=== PATIENT | male | born 1985 | race African-American/Black ===

== ENCOUNTER 2017-05-22 23:16 | Inpatient (IN) | payer OTHER ==
[~2017-05-22] VITALS: Ht 176.5 cm; Wt 81.0 kg
[~2017-05-22 23:16] MED LIST: AMOX875 PO; SULF1TAB47 PO
[2017-05-23] VITALS (7 sets, daily range): BP systolic 93–122; BP diastolic 56–72; PULSE 55–89; RESP 16–18; TEMP 96.8–100; O2SAT 95–99
[2017-05-23] MEDS ORDERED: ACETAMINOPHEN/HYDROcodone 325 MG/5 MG TAB PO PRN (01:45)
[2017-05-23] MEDS ORDERED: MORPHINE SULFATE 2 MG/ML INJ IV PRN (01:45)
[2017-05-23] MEDS ORDERED: SODIUM CHLORID 0.9% 500 ML IV PRN (02:15)
[2017-05-23] MEDS ORDERED: POVIDONE IODINE 5% (ANTISEPSIS KIT) 4 APPLICATIONS EACH NARE PRN (02:15)
[2017-05-23] MEDS ORDERED: LACTATED RINGER'S 1000 ML IV PRN (02:15)
[2017-05-23] MEDS ORDERED: CHLORHEXIDINE GLUCONATE 2 % 1 PACK (2 CLOTHS) TOPICAL PRN (02:15)
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
[2017-05-23] MEDS ORDERED: VANCOMYCIN HCL 1000 MG VIAL ONE (06:54)
[2017-05-23] MEDS ORDERED: GENTAMICIN SULFATE 80 MG/2 ML VIAL ONE (06:54)
[2017-05-23] MEDS ORDERED: ceFAZolin 2 GM PREMIX 50 ML ONE (06:54)
[2017-05-23] MEDS ORDERED: TRANEXAMIC ACID INJ 0 MG in SODIUM CHLORIDE 0.9% INJ 100 ML IV ONE (07:00)
[2017-05-23] MEDS ORDERED: TRANEXAMIC ACID INJ 1,230 MG in SODIUM CHLORIDE 0.9% INJ 100 ML IV SCH (07:30)
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
[2017-05-23] MEDS ORDERED: ACETAMINOPHEN 1000 MG/100 ML 100 ML IV ONE (08:33)
[2017-05-23] MEDS ORDERED: DEXAMETHASONE SOD PHOS 4 MG/ML VIAL ONE (08:33)
[2017-05-23] MEDS ORDERED: WHEEMIS3 (09:26)
[2017-05-23] MEDS ORDERED: XARE10TA PO (09:26)
[2017-05-23] MEDS ORDERED: WALKER/ADULT/FO1 MIS (09:26)
[2017-05-23] MEDS ORDERED: HYDR-3583 PO (09:26)
[2017-05-23 09:39] LABS: HEMATOCRIT 30.8 % (39.0-51.0); HEMOGLOBIN 10.5 GM/DL (13.0-17.0); MEAN CELL VOLUME 89.9 FL (80.0-100.0); MEAN CORPUSCULAR HEMOGLOBIN 30.6 PG (27.0-34.0); MEAN PLATELET VOLUME 7.8 FL (7.0-11.0); PLATELET COUNT 231 TH/MM3 (150-450); RED BLOOD COUNT 3.43 MIL/MM3 (4.50-5.90); RED CELL DISTRIBUTION WIDTH 12.5 % (11.6-17.2); WHITE BLOOD COUNT 9.9 TH/MM3 (4.0-11.0)
[2017-05-23] MEDS ORDERED: MISCELLANEOUS PHARMACY INFORMATION XX ONE (09:45)
[2017-05-23] MEDS ORDERED: NALOXONE HCL 0.4 MG/ML AMP IV PUSH PRN (09:45)
[2017-05-23] MEDS ORDERED: MISCELLANEOUS NURSING INFORMATION XX PRN (09:45)
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
[2017-05-23] MEDS ORDERED: ceFAZolin 2 GM PREMIX 50 ML IV SCH (10:00)
--- NOTE | 2017-05-23 10:19 | RADRPT ---
EXAM DATE/TIME: 05/23/2017 09:09 [place] COMPARISON: No previous studies available for comparison. INDICATIONS : Open reduction internal fixation right acetabulum. MEDICAL HISTORY : None. SURGICAL HISTORY : None. ENCOUNTER: Initial ACUITY: 1 day PAIN SCORE: Non-responsive. LOCATION: Right Hip FINDINGS: Plate with screws is seen bridging the acetabular fracture. Alignment appears anatomic. CONCLUSION: Anatomic alignment. William Briceño MD FACR on May 23, 2017 at 9:59 Board Certified Radiologist. This report was verified electronically.
[2017-05-23] MEDS ORDERED: INDO75CA3 PO (10:25)
[2017-05-23] MEDS ORDERED: MIDAZOLAM HCL 2 MG/2 ML VIAL ONE (10:31)
[2017-05-23] MEDS: MORPHINE SULFATE 30 MG/30 ML PCA IV SCH ×2 (10:39→22:34)
[2017-05-23] MEDS: LACTATED RINGER'S 1000 ML INJ 1,000 ML IV SCH ×2 (10:50→20:55)
[2017-05-23] MEDS ORDERED: MORPHINE SULFATE 4 MG/ML INJ IV PUSH PRN (11:00)
[2017-05-23] MEDS ORDERED: GLYCOPYRROLATE 1 MG/5 ML SYRINGE IV PUSH ONE (12:00)
[2017-05-23] MEDS ORDERED: PHENYLEPH/NS 1000 MCG/10 ML SYR IV ONE (12:00)
[2017-05-23] MEDS ORDERED: DO NOT ADM ANY ANTICOAGULANT DRUGS PRN (12:00)
[2017-05-23] MEDS ORDERED: PROPOFOL 200 MG/20 ML AMP IV ONE (12:00)
[2017-05-23] MEDS ORDERED: DEXAMETHASONE SOD PHOS 4 MG/ML VIAL IV ONE (12:00)
[2017-05-23] MEDS ORDERED: LACTATED RINGER'S 1000 ML INJ 3,000 ML IV ONE (12:00)
[2017-05-23] MEDS ORDERED: ROCURONIUM INJ 50 MG/5 ML SYRINGE IV PUSH ONE (12:00)
[2017-05-23] MEDS ORDERED: ONDANSETRON HCL 4 MG/2 ML VIAL IV ONE (12:00)
[2017-05-23] MEDS ORDERED: SODIUM CHLOR 0.9% 250 ML INJ 500 ML IV ONE (12:00)
[2017-05-23] MEDS ORDERED: LIDOCAINE HCL 1% PF 5 ML SYRINGE OTHER ONE (12:00)
[2017-05-23] MEDS ORDERED: NEOSTIGMINE 5 MG/5 ML SYRINGE IV PUSH ONE (12:00)
[2017-05-23] MEDS: PCA - TOTAL MG MORPHINE DELIVERED PER SHIFT SCH ×2 (14:00→22:00)
[2017-05-23] MEDS: ceFAZolin 2 GM PREMIX 50 ML IV SCH (15:25)
[2017-05-23] MEDS: VANCOMYCIN INJ 1,000 MG in SODIUM CHLOR 0.9% 250 ML INJ 250 ML IV SCH (20:55)
[2017-05-23] MEDS: ENOXAPARIN SODIUM 30 MG/0.3 ML SYRINGE SQ SCH (22:36)
[2017-05-24 01:29] VITALS: BP 116/78; PULSE 78; RESP 20; TEMP 97.6; O2SAT 97
[2017-05-24 04:10] VITALS: BP 112/63; PULSE 81; RESP 17; TEMP 99.5; O2SAT 94
[2017-05-24] MEDS: PCA - TOTAL MG MORPHINE DELIVERED PER SHIFT SCH ×3 (06:00→22:00)
--- NOTE | 2017-05-24 07:27 | PD.ORT.PN ---
Subjective Subjective Remarks POD 1 s/p ORIf right acetabulum doing well. reports pain but controlled Objective Vitals Vital Signs Date Time Temp Pulse Resp B/P (MAP) Pulse Ox O2 Delivery O2 Flow Rate FiO2 05/23/17 23:30 99.0 81 17 106/64 (78) 95 05/23/17 22:34 18 05/23/17 22:00 18 05/23/17 19:45 98.0 75 16 113/66 (82) 96 05/23/17 16:00 98.6 66 18 93/61 (72) 99 05/23/17 12:56 99 21 05/23/17 12:00 96.8 55 18 93/65 (74) 96 05/23/17 11:06 98.8 63 14 105/62 (76) 100 Nasal Cannula 2 05/23/17 11:00 59 14 103/61 (75) 100 Nasal Cannula 2 05/23/17 10:45 64 13 102/63 (76) 100 Nasal Cannula 2 05/23/17 10:39 15 05/23/17 10:30 60 15 106/64 (78) 99 Nasal Cannula 2 05/23/17 10:21 98.6 96 24 108/61 (77) 100 Nasal Cannula 2 I/O 05/23/17 05/23/17 05/23/17 05/24/17 05/24/17 05/24/17 07:00 15:00 23:00 07:00 15:00 23:00 Intake Total 0 ml 902 ml 720 ml Output Total 250 ml 3410 ml 900 ml Balance -250 ml -2508 ml -180 ml Intake Oral 0 ml 720 ml 720 ml IV Total 102 ml Other 80 ml Output Urine Total 250 ml 2600 ml 900 ml Drainage Total 10 ml Estimated Blood Loss 800 ml # Bowel Movements 0 0 Result Diagram: 05/23/17 0911 Objective Remarks RLE: dressings clean and dry. itnact. NVI. +knee brace. +drain Assessment & Plan Problem List: (1) Closed posterior wall fracture of right acetabulum ICD Codes: S32.421A - Displaced fracture of posterior wall of right acetabulum , initial encounter for closed fracture Qualifiers: Qualified Codes: S32.421A - Displaced fracture of posterior wall of right acetabulum, initial encounter for closed fracture Assessment and Plan 1) Right Acetabulum Fx s/p ORIF - POD 1 -NWB. TTWB for transfers -daily dressing changes POD 2 -plan for DC drain with dressing change -knee brace while in bed -posterior hip precautions -Lovenox -CM for DC planning -f/u with Charan or SHAHEED i n2 weeks Hebert Shirley/First Naida HUMMEL May 24, 2017 07:27
[2017-05-24 08:00] VITALS: BP 115/55; PULSE 90; RESP 18; TEMP 100.3; O2SAT 96
[2017-05-24] MEDS: LACTATED RINGER'S 1000 ML INJ 1,000 ML IV SCH ×3 (08:22→21:53)
[2017-05-24] MEDS: ceFAZolin 2 GM PREMIX 50 ML IV SCH ×4 (08:22→23:40)
[2017-05-24] MEDS: INDOMETHACIN 75 MG CONTROLLED RELEASE CAP PO SCH (08:22)
[2017-05-24] MEDS: VANCOMYCIN INJ 1,000 MG in SODIUM CHLOR 0.9% 250 ML INJ 250 ML IV SCH ×2 (08:22→19:45)
[2017-05-24] MEDS: ACETAMINOPHEN/HYDROcodone 325 MG/10 MG TAB PO PRN ×3 (08:32→23:43)
[2017-05-24 08:38] LABS: HEMATOCRIT 28.1 % (39.0-51.0)
[2017-05-24] MEDS: ENOXAPARIN SODIUM 30 MG/0.3 ML SYRINGE SQ SCH ×2 (11:04→23:40)
[2017-05-24 16:00] VITALS: BP 102/66; PULSE 80; RESP 18; TEMP 97.1; O2SAT 96
[2017-05-24] MEDS: MORPHINE SULFATE 30 MG/30 ML PCA IV SCH (19:45)
[2017-05-24 20:50] VITALS: BP 98/60; PULSE 76; RESP 16; TEMP 98.6; O2SAT 96
[2017-05-24 23:15] VITALS: BP 105/55; PULSE 93; RESP 17; TEMP 100.3; O2SAT 96
[2017-05-25] MEDS: LACTATED RINGER'S 1000 ML INJ 1,000 ML IV SCH ×3 (03:00→21:54)
[2017-05-25 04:55] VITALS: BP 106/65; PULSE 100; RESP 17; TEMP 99.7; O2SAT 97
[2017-05-25] MEDS: PCA - TOTAL MG MORPHINE DELIVERED PER SHIFT SCH ×3 (06:00→21:52)
--- NOTE | 2017-05-25 06:40 | PD.ORT.PN ---
Subjective Subjective Remarks POD 2 s/p ORIf right acetabulum doing well. reports pain but controlled. states pain in ankle improving. reports out of bed with therapy yesterday and did well Objective Vitals Vital Signs Date Time Temp Pulse Resp B/P (MAP) Pulse Ox O2 Delivery O2 Flow Rate FiO2 05/25/17 06:00 18 05/25/17 04:55 99.7 100 17 106/65 (79) 97 05/24/17 23:15 100.3 93 17 105/55 (72) 96 05/24/17 22:00 6 05/24/17 20:50 98.6 76 16 98/60 (73) 96 05/24/17 20:00 96 Room Air 05/24/17 19:50 18 05/24/17 19:45 18 05/24/17 16:00 97.1 80 18 102/66 (78) 96 05/24/17 08:00 100.3 90 18 115/55 (75) 96 05/24/17 07:27 Room Air I/O 05/24/17 05/24/17 05/24/17 05/25/17 05/25/17 05/25/17 07:00 15:00 23:00 07:00 15:00 23:00 Intake Total 480 ml 720 ml 1730 ml 459 ml Output Total 1340 ml 1530 ml 640 ml Balance -860 ml -810 ml 1090 ml 459 ml Intake Oral 480 ml 720 ml 480 ml IV Total 1250 ml 459 ml Output Urine Total 1300 ml 1500 ml 600 ml Drainage Total 40 ml 30 ml 40 ml # Bowel Movements 0 0 0 Result Diagram: 05/24/17 0748 Objective Remarks RLE: dressings clean and dry. itnact. NVI. +knee brace. +drain Assessment & Plan Problem List: (1) Closed posterior wall fracture of right acetabulum ICD Codes: S32.421A - Displaced fracture of posterior wall of right acetabulum , initial encounter for closed fracture Qualifiers: Qualified Codes: S32.421A - Displaced fracture of posterior wall of right acetabulum, initial encounter for closed fracture Assessment and Plan 1) Right Acetabulum Fx s/p ORIF - POD 2 -NWB. TTWB for transfers -daily dressing changes -DC drain with dressing change -knee brace while in bed -posterior hip precautions -Lovenox -CM for DC planning. will likely need SNF as patient lives alone. -f/u with Charan or PA i n2 weeks Hebert Shirley/First Naida UHMMEL May 25, 2017 06:40
[2017-05-25 08:00] VITALS: BP 126/73; PULSE 99; RESP 16; TEMP 99.6; O2SAT 98
[2017-05-25] MEDS: VANCOMYCIN INJ 1,000 MG in SODIUM CHLOR 0.9% 250 ML INJ 250 ML IV SCH (08:52)
[2017-05-25] MEDS: INDOMETHACIN 75 MG CONTROLLED RELEASE CAP PO SCH (08:52)
[2017-05-25] MEDS: ACETAMINOPHEN/HYDROcodone 325 MG/10 MG TAB PO PRN ×2 (08:52→12:37)
[2017-05-25] MEDS: ceFAZolin 2 GM PREMIX 50 ML IV SCH ×2 (08:53→15:50)
[2017-05-25] MEDS: ENOXAPARIN SODIUM 30 MG/0.3 ML SYRINGE SQ SCH ×2 (09:01→21:51)
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
--- NOTE | 2017-05-25 10:57 | RADONCENDT ---
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, unspecified site, Diagnosed 05/24/2017 (Active) , Diagnosis Confirmed: Suspected Diagnosis Date: 05/24/2017 Diagnosis Laterality: Method of Diagnosis: Unknown PRESCRIPTION AND TREATMENT: Rt Hip ([place]) (Plan ID - Rt Hip c1) - Rx Dose 700cGy (Status - Treatment Approved) - PLAN FRACTIONS AND DATES: Course: Rt Hip ([place]) Plan IDFractionsFirst TreatmentLast TreatmentExpected End of TreatmentRt Hip c11 / 1 TREATED PLANS: Course: Rt Hip ([place]) Plan IDEnergyFractionsDose per Fraction (cGy)Dose Correction (cGy)Total Dose Delivered (cGy)Elapsed DaysRt Hip [id number] / [id number] TOLERANCE: no complications FOLLOW UP PLAN: no f/u; to follow with ortho surgeon Eamon Magaña MD 05/25/2017 10:56:42 AM This report was verified electronicallyThis report was verified electronically
[2017-05-25 12:00] VITALS: BP 131/74; PULSE 86; RESP 16; TEMP 98.2; O2SAT 98
[2017-05-25 16:00] VITALS: BP 129/73; PULSE 81; RESP 16; TEMP 98.4; O2SAT 95
[2017-05-25] MEDS ORDERED: ONDANSETRON HCL 4 MG/2 ML VIAL IV PUSH PRN (17:45)
[2017-05-25] MEDS: MORPHINE SULFATE 30 MG/30 ML PCA IV SCH (18:07)
[2017-05-25] MEDS ORDERED: MAGNESIUM HYDROXIDE SUSP 30 ML CUP PO PRN (19:00)
[2017-05-25] MEDS ORDERED: BISACODYL 10 MG SUPP RECTAL PRN (19:00)
[2017-05-25 19:16] VITALS: BP 124/65; PULSE 78; RESP 18; TEMP 97.4; O2SAT 99
[2017-05-25 23:07] VITALS: BP 115/71; PULSE 66; RESP 18; TEMP 97.5; O2SAT 98
[2017-05-26] MEDS: ceFAZolin 2 GM PREMIX 50 ML IV SCH ×2 (00:22→08:28)
[2017-05-26 04:50] VITALS: BP 128/65; PULSE 79; RESP 18; TEMP 99.2; O2SAT 99
[2017-05-26] MEDS: ACETAMINOPHEN/HYDROcodone 325 MG/10 MG TAB PO PRN ×3 (05:46→20:37)
[2017-05-26] MEDS: PCA - TOTAL MG MORPHINE DELIVERED PER SHIFT SCH ×3 (05:46→19:25)
--- NOTE | 2017-05-26 06:42 | PD.ORT.PN ---
Subjective Subjective Remarks POD 3 s/p ORIf right acetabulum doing well. reports pain but controlled. states pain in ankle improving. reports out of bed with therapy yesterday and did well. overall improving. Objective Vitals Vital Signs Date Time Temp Pulse Resp B/P (MAP) Pulse Ox O2 Delivery O2 Flow Rate FiO2 05/26/17 04:50 99.2 79 18 128/65 (86) 99 05/25/17 23:07 97.5 66 18 115/71 (86) 98 05/25/17 21:52 17 05/25/17 19:16 97.4 78 18 124/65 (84) 99 05/25/17 18:17 18 05/25/17 18:07 18 05/25/17 16:00 98.4 81 16 129/73 (91) 95 05/25/17 14:00 18 05/25/17 13:48 18 05/25/17 12:00 98.2 86 16 131/74 (93) 98 05/25/17 08:00 99.6 99 16 126/73 (90) 98 I/O 05/25/17 05/25/17 05/25/17 05/26/17 05/26/17 05/26/17 07:00 15:00 23:00 07:00 15:00 23:00 Intake Total 699 ml 2400 ml 410 ml Output Total 870 ml 1660 ml Balance -171 ml 740 ml 410 ml Intake Oral 240 ml 1420 ml 360 ml IV Total 459 ml 980 ml 50 ml Output Urine Total 850 ml 1600 ml Drainage Total 20 ml 60 ml # Voids 2 2 # Bowel Movements 0 0 0 Result Diagram: 05/24/17 0748 Objective Remarks RLE: dressings clean and dry. itnact. NVI. +knee brace. Assessment & Plan Problem List: (1) Closed posterior wall fracture of right acetabulum ICD Codes: S32.421A - Displaced fracture of posterior wall of right acetabulum , initial encounter for closed fracture Qualifiers: Qualified Codes: S32.421A - Displaced fracture of posterior wall of right acetabulum, initial encounter for closed fracture Assessment and Plan 1) Right Acetabulum Fx s/p ORIF - POD 3 -NWB. TTWB for transfers -daily dressing changes -DC drain with dressing change -knee brace while in bed -posterior hip precautions -Lovenox -CM for DC planning. will likely need SNF as patient lives alone. if patient is self pay, will look to improve with therapy and possibly go home -f/u with Charan or SHAHEED mendenhall n2 weeks Hebert Shirley/First Naida HUMMEL May 26, 2017 06:42
[2017-05-26 08:00] VITALS: BP 121/79; PULSE 84; RESP 17; TEMP 97.9; O2SAT 99
[2017-05-26] MEDS: INDOMETHACIN 75 MG CONTROLLED RELEASE CAP PO SCH (08:28)
[2017-05-26] MEDS: ENOXAPARIN SODIUM 30 MG/0.3 ML SYRINGE SQ SCH ×2 (08:28→20:53)
[2017-05-26] MEDS: LACTATED RINGER'S 1000 ML INJ 1,000 ML IV SCH ×2 (08:29→19:00)
[2017-05-26 12:09] VITALS: BP 138/92; PULSE 80; RESP 18; TEMP 97.2; O2SAT 99
[2017-05-26 16:16] VITALS: BP 156/85; PULSE 89; RESP 17; TEMP 98.3; O2SAT 99
[2017-05-26 20:13] VITALS: BP 132/77; PULSE 84; RESP 18; TEMP 98.1; O2SAT 97
[2017-05-27 00:13] VITALS: BP 127/56; PULSE 90; RESP 18; TEMP 97.1; O2SAT 97
[2017-05-27] MEDS: LACTATED RINGER'S 1000 ML INJ 1,000 ML IV SCH ×2 (04:44→12:07)
[2017-05-27] MEDS: PCA - TOTAL MG MORPHINE DELIVERED PER SHIFT SCH ×3 (05:36→20:20)
[2017-05-27] MEDS: ACETAMINOPHEN/HYDROcodone 325 MG/10 MG TAB PO PRN ×5 (05:40→23:18)
--- NOTE | 2017-05-27 06:49 | PD.ORT.PN ---
Subjective Subjective Remarks POD 4 s/p ORIf right acetabulum doing well. reports pain but controlled. states pain in ankle improving. reports out of bed with therapy yesterday and did well. overall improving. states feels uncomfortable going home as is unsteady and needs assistance Objective Vitals Vital Signs Date Time Temp Pulse Resp B/P (MAP) Pulse Ox O2 Delivery O2 Flow Rate FiO2 05/27/17 00:13 97.1 90 18 127/56 (79) 97 05/26/17 20:13 98.1 84 18 132/77 (95) 97 05/26/17 16:30 18 05/26/17 16:16 98.3 89 17 156/85 (108) 99 05/26/17 12:09 97.2 80 18 138/92 (107) 99 05/26/17 08:00 97.9 84 17 121/79 (93) 99 I/O 05/26/17 05/26/17 05/26/17 05/27/17 05/27/17 05/27/17 07:00 15:00 23:00 07:00 15:00 23:00 Intake Total 410 ml 950 ml 480 ml 480 ml Output Total 1500 ml Balance 410 ml -550 ml 480 ml 480 ml Intake Oral 360 ml 950 ml 480 ml 480 ml IV Total 50 ml Output Urine Total 1500 ml # Voids 2 2 3 # Bowel Movements 0 0 2 Result Diagram: 05/24/17 0748 Objective Remarks RLE: dressings clean and dry. itnact. NVI. +knee brace. Assessment & Plan Problem List: (1) Closed posterior wall fracture of right acetabulum ICD Codes: S32.421A - Displaced fracture of posterior wall of right acetabulum , initial encounter for closed fracture Qualifiers: Qualified Codes: S32.421A - Displaced fracture of posterior wall of right acetabulum, initial encounter for closed fracture Assessment and Plan 1) Right Acetabulum Fx s/p ORIF - POD 4 -NWB. TTWB for transfers -daily dressing changes -DC drain with dressing change -knee brace while in bed -posterior hip precautions -Lovenox -CM for DC planning. will likely need SNF as patient lives alone. unsafe to go home at this point. would prefer SNF placement. CM to arrange. -cleared for DC once arrangements made -f/u with Charan in 2 weeks Hebert Shirley PA/[employer]st PA May 27, 2017 06:49
[2017-05-27 08:28] VITALS: BP 112/55; PULSE 81; RESP 17; TEMP 98.6; O2SAT 99
[2017-05-27] MEDS: BISACODYL EC 5 MG TABEC PO SCH ×2 (08:49→20:18)
[2017-05-27] MEDS: LACTULOSE SYRUP 20 GM/30 ML CUP PO SCH ×2 (08:52→20:18)
[2017-05-27] MEDS: SENNOSIDES 8.6 MG TAB PO SCH ×2 (08:53→20:18)
[2017-05-27] MEDS: INDOMETHACIN 75 MG CONTROLLED RELEASE CAP PO SCH (08:53)
[2017-05-27] MEDS: ENOXAPARIN SODIUM 30 MG/0.3 ML SYRINGE SQ SCH ×2 (11:00→23:08)
[2017-05-27 12:12] VITALS: BP 116/64; PULSE 84; RESP 18; TEMP 100; O2SAT 100
[2017-05-27 16:24] VITALS: BP 118/66; PULSE 72; RESP 17; TEMP 98.2; O2SAT 98
[2017-05-27 20:45] VITALS: BP 121/74; PULSE 73; RESP 17; TEMP 97.8; O2SAT 98
[2017-05-28 00:15] VITALS: BP 119/69; PULSE 73; RESP 16; TEMP 97; O2SAT 99
[2017-05-28] MEDS: LACTATED RINGER'S 1000 ML INJ 1,000 ML IV SCH ×4 (01:00→23:30)
[2017-05-28] MEDS: ACETAMINOPHEN/HYDROcodone 325 MG/10 MG TAB PO PRN ×5 (04:01→23:29)
[2017-05-28] MEDS: PCA - TOTAL MG MORPHINE DELIVERED PER SHIFT SCH ×4 (05:03→23:29)
[2017-05-28 07:38] VITALS: BP 124/59; PULSE 63; RESP 18; TEMP 97.5; O2SAT 97
--- NOTE | 2017-05-28 08:00 | PD.ORT.PN ---
Subjective Post Op Day #: 5 Subjective Remarks pain tolerable. Objective Vitals Vital Signs Date Time Temp Pulse Resp B/P (MAP) Pulse Ox O2 Delivery O2 Flow Rate FiO2 05/28/17 07:38 97.5 63 18 124/59 (80) 97 05/28/17 00:15 97.0 73 16 119/69 (86) 99 05/27/17 20:45 97.8 73 17 121/74 (90) 98 05/27/17 20:23 Room Air 05/27/17 16:24 98.2 72 17 118/66 (83) 98 05/27/17 12:12 100.0 84 18 116/64 (81) 100 05/27/17 08:28 98.6 81 17 112/55 (74) 99 05/27/17 08:16 Room Air I/O 05/27/17 05/27/17 05/27/17 05/28/17 05/28/17 05/28/17 07:00 15:00 23:00 07:00 15:00 23:00 Intake Total 480 ml 1230 ml 480 ml Balance 480 ml 1230 ml 480 ml Intake Oral 480 ml 1230 ml 480 ml IV Total 0 ml # Voids 3 5 2 # Bowel Movements 2 0 1 Result Diagram: 05/24/17 0748 Objective Remarks RLE: dressings clean and dry. intact. NVI. +knee brace. neg homans Assessment & Plan Ortho Post Op Day #: 5 Problem List: (1) Closed posterior wall fracture of right acetabulum ICD Codes: S32.421A - Displaced fracture of posterior wall of right acetabulum , initial encounter for closed fracture Qualifiers: Qualified Codes: S32.421A - Displaced fracture of posterior wall of right acetabulum, initial encounter for closed fracture Assessment and Plan 1) Right Acetabulum Fx s/p ORIF - POD 4 -NWB. TTWB for transfers -daily dressing changes -DC drain with dressing change - has been d/c -knee brace while in bed -posterior hip precautions -Lovenox -CM for DC planning. will likely need SNF as patient lives alone. unsafe to go home at this point. would prefer SNF placement. CM to arrange. -cleared for DC once arrangements made -f/u with Charan in 2 weeks Jett Acuna May 28, 2017 08:00
[2017-05-28] MEDS: LACTULOSE SYRUP 20 GM/30 ML CUP PO SCH ×2 (09:00→20:11)
[2017-05-28] MEDS: SENNOSIDES 8.6 MG TAB PO SCH ×2 (09:00→20:12)
[2017-05-28] MEDS: BISACODYL EC 5 MG TABEC PO SCH ×2 (09:00→20:12)
[2017-05-28] MEDS: INDOMETHACIN 75 MG CONTROLLED RELEASE CAP PO SCH (09:13)
[2017-05-28] MEDS: ENOXAPARIN SODIUM 30 MG/0.3 ML SYRINGE SQ SCH ×2 (11:27→23:29)
[2017-05-28 11:45] VITALS: BP 133/70; PULSE 90; RESP 18; TEMP 98.4; O2SAT 98
[2017-05-28 16:00] VITALS: BP 132/61; PULSE 76; RESP 18; TEMP 96.9; O2SAT 100
[2017-05-28 20:49] VITALS: BP 116/75; PULSE 75; RESP 16; TEMP 98.6; O2SAT 99
[2017-05-28 23:55] VITALS: BP 119/79; PULSE 77; RESP 17; TEMP 98; O2SAT 100
[2017-05-29] MEDS: ACETAMINOPHEN/HYDROcodone 325 MG/10 MG TAB PO PRN ×5 (02:38→22:21)
[2017-05-29 08:00] VITALS: BP 111/70; PULSE 67; RESP 18; TEMP 96.5; O2SAT 99
--- NOTE | 2017-05-29 08:00 | PD.ORT.PN ---
Subjective Post Op Day #: 6 Subjective Remarks pain tolerable. doing well. Objective Vitals Vital Signs Date Time Temp Pulse Resp B/P (MAP) Pulse Ox O2 Delivery O2 Flow Rate FiO2 05/28/17 23:55 98.0 77 17 119/79 (92) 100 05/28/17 20:49 98.6 75 16 116/75 (89) 99 05/28/17 16:19 05/28/17 16:00 96.9 76 18 132/61 (84) 100 05/28/17 11:45 98.4 90 18 133/70 (91) 98 05/28/17 09:32 I/O 05/28/17 05/28/17 05/28/17 05/29/17 05/29/17 05/29/17 07:00 15:00 23:00 07:00 15:00 23:00 Intake Total 480 ml 950 ml 480 ml 360 ml Output Total 500 ml Balance 480 ml 950 ml 480 ml -140 ml Intake Oral 480 ml 950 ml 480 ml 360 ml IV Total 0 ml 0 ml Output Urine Total 500 ml # Voids 2 2 2 # Bowel Movements 1 0 0 0 Objective Remarks RLE: dressings clean and dry. intact. NVI. +knee brace. neg homans Assessment & Plan Ortho Post Op Day #: 6 Problem List: (1) Closed posterior wall fracture of right acetabulum ICD Codes: S32.421A - Displaced fracture of posterior wall of right acetabulum , initial encounter for closed fracture Qualifiers: Qualified Codes: S32.421A - Displaced fracture of posterior wall of right acetabulum, initial encounter for closed fracture Assessment and Plan 1) Right Acetabulum Fx s/p ORIF - POD 4 -NWB. TTWB for transfers -daily dressing changes -DC drain with dressing change - has been d/c -knee brace while in bed -posterior hip precautions -Lovenox -CM for DC planning. will likely need SNF as patient lives alone. unsafe to go home at this point. would prefer SNF placement. CM to arrange. -cleared for DC once arrangements made -f/u with Charan in 2 weeks Jett Acuna May 29, 2017 08:00
[2017-05-29] MEDS: SENNOSIDES 8.6 MG TAB PO SCH ×2 (09:00→20:02)
[2017-05-29] MEDS: BISACODYL EC 5 MG TABEC PO SCH ×2 (09:00→20:02)
[2017-05-29] MEDS: LACTULOSE SYRUP 20 GM/30 ML CUP PO SCH ×2 (09:00→20:02)
[2017-05-29] MEDS: INDOMETHACIN 75 MG CONTROLLED RELEASE CAP PO SCH (11:05)
[2017-05-29] MEDS: ENOXAPARIN SODIUM 30 MG/0.3 ML SYRINGE SQ SCH ×2 (11:06→22:21)
[2017-05-29] MEDS: PCA - TOTAL MG MORPHINE DELIVERED PER SHIFT SCH ×2 (11:08→22:00)
[2017-05-29] MEDS: LACTATED RINGER'S 1000 ML INJ 1,000 ML IV SCH (11:08)
[2017-05-29 12:00] VITALS: BP 129/81; PULSE 88; RESP 18; TEMP 97.5; O2SAT 100
[2017-05-29 16:00] VITALS: BP 125/79; PULSE 81; RESP 18; TEMP 97.7; O2SAT 100
[2017-05-29 20:00] VITALS: BP 119/66; PULSE 73; TEMP 97.9; O2SAT 98
[2017-05-30] VITALS: BP 114/70; PULSE 70; RESP 16; TEMP 97.7; O2SAT 100
[2017-05-30] MEDS: LACTATED RINGER'S 1000 ML INJ 1,000 ML IV SCH ×3 (03:00→23:00)
[2017-05-30] MEDS: ACETAMINOPHEN/HYDROcodone 325 MG/10 MG TAB PO PRN ×6 (03:02→23:03)
[2017-05-30] MEDS: PCA - TOTAL MG MORPHINE DELIVERED PER SHIFT SCH ×3 (06:00→22:00)
--- NOTE | 2017-05-30 06:31 | PD.ORT.PN ---
Subjective Subjective Remarks Resting comfortably with no new complaints. Has been getting up on a walker. Objective Vitals Vital Signs Date Time Temp Pulse Resp B/P (MAP) Pulse Ox O2 Delivery O2 Flow Rate FiO2 05/30/17 00:00 97.7 70 16 114/70 (85) 100 05/29/17 20:00 98 Room Air 05/29/17 20:00 97.9 73 119/66 (83) 98 05/29/17 16:00 97.7 81 18 125/79 (94) 100 05/29/17 12:00 97.5 88 18 129/81 (97) 100 05/29/17 08:00 96.5 67 18 111/70 (84) 99 I/O 05/29/17 05/29/17 05/29/17 05/30/17 05/30/17 05/30/17 07:00 15:00 23:00 07:00 15:00 23:00 Intake Total 360 ml 1200 ml Output Total 500 ml Balance -140 ml 1200 ml Intake Oral 360 ml 1200 ml Output Urine Total 500 ml # Voids 3 2 # Bowel Movements 0 1 Objective Remarks RLE: dressings clean and dry. intact. NVI. +knee brace. neg homans Assessment & Plan Problem List: (1) Closed posterior wall fracture of right acetabulum ICD Codes: S32.421A - Displaced fracture of posterior wall of right acetabulum , initial encounter for closed fracture Qualifiers: Qualified Codes: S32.421A - Displaced fracture of posterior wall of right acetabulum, initial encounter for closed fracture Assessment and Plan 1) Right Acetabulum Fx s/p ORIF - POD 5 -NWB. TTWB for transfers -daily dressing changes -knee brace while in bed -posterior hip precautions -Lovenox -CM for DC planning. will likely need SNF as patient lives alone. unsafe to go home at this point. would prefer SNF placement. CM to arrange. -cleared for DC once arrangements made -f/u with Charan in 2 weeks Mayank Duran Jr. May 30, 2017 06:31
[2017-05-30 08:00] VITALS: BP 121/77; PULSE 74; RESP 18; TEMP 97.1; O2SAT 100
[2017-05-30] MEDS: INDOMETHACIN 75 MG CONTROLLED RELEASE CAP PO SCH (08:32)
[2017-05-30] MEDS: LACTULOSE SYRUP 20 GM/30 ML CUP PO SCH ×2 (08:35→21:00)
[2017-05-30] MEDS: BISACODYL EC 5 MG TABEC PO SCH ×2 (08:35→21:00)
[2017-05-30] MEDS: ENOXAPARIN SODIUM 30 MG/0.3 ML SYRINGE SQ SCH ×2 (08:35→23:03)
[2017-05-30] MEDS: SENNOSIDES 8.6 MG TAB PO SCH ×2 (08:35→21:00)
[2017-05-30 12:00] VITALS: BP 129/76; PULSE 110; RESP 18; TEMP 97.8; O2SAT 99
[2017-05-30 16:00] VITALS: BP 116/69; PULSE 60; RESP 18; TEMP 97.4; O2SAT 100
[2017-05-30 19:40] VITALS: BP 121/77; PULSE 80; RESP 17; TEMP 97.2; O2SAT 100
[2017-05-30 23:35] VITALS: BP 109/70; PULSE 72; RESP 16; TEMP 97.7; O2SAT 98
[2017-05-31] MEDS: PCA - TOTAL MG MORPHINE DELIVERED PER SHIFT SCH (06:00)
--- NOTE | 2017-05-31 06:28 | PD.ORT.PN ---
Subjective Subjective Remarks Resting comfortably with no new complaints. Has been getting up on a walker. Objective Vitals Vital Signs Date Time Temp Pulse Resp B/P (MAP) Pulse Ox O2 Delivery O2 Flow Rate FiO2 05/30/17 23:35 97.7 72 16 109/70 (83) 98 05/30/17 19:40 97.2 80 17 121/77 (92) 100 05/30/17 18:33 18 05/30/17 16:00 97.4 60 18 116/69 (85) 100 05/30/17 12:00 97.8 110 18 129/76 (93) 99 05/30/17 08:00 97.1 74 18 121/77 (92) 100 I/O 05/30/17 05/30/17 05/30/17 05/31/17 05/31/17 05/31/17 07:00 15:00 23:00 07:00 15:00 23:00 Intake Total 200 ml 720 ml 960 ml Balance 200 ml 720 ml 960 ml Intake Oral 200 ml 720 ml 960 ml # Voids 1 2 2 # Bowel Movements 2 0 Objective Remarks RLE: dressings clean and dry. intact. NVI. +knee brace. neg homans Assessment & Plan Problem List: (1) Closed posterior wall fracture of right acetabulum ICD Codes: S32.421A - Displaced fracture of posterior wall of right acetabulum , initial encounter for closed fracture Qualifiers: Qualified Codes: S32.421A - Displaced fracture of posterior wall of right acetabulum, initial encounter for closed fracture Assessment and Plan 1) Right Acetabulum Fx s/p ORIF - POD 6 -NWB. TTWB for transfers -daily dressing changes -knee brace while in bed -posterior hip precautions -Lovenox -CM for DC planning. will likely need SNF as patient lives alone. unsafe to go home at this point. would prefer SNF placement. CM to arrange. -cleared for DC once arrangements made -f/u with Charan in 2 weeks Mayank Duran Jr. May 31, 2017 06:28
[2017-05-31 07:36] VITALS: BP 125/69; PULSE 84; RESP 18; TEMP 98.9; O2SAT 98
[2017-05-31] MEDS: INDOMETHACIN 75 MG CONTROLLED RELEASE CAP PO SCH (07:56)
[2017-05-31] MEDS: ACETAMINOPHEN/HYDROcodone 325 MG/10 MG TAB PO PRN (07:56)
[2017-05-31] MEDS: ENOXAPARIN SODIUM 30 MG/0.3 ML SYRINGE SQ SCH (07:57)
[2017-05-31] MEDS: BISACODYL EC 5 MG TABEC PO SCH (07:58)
[2017-05-31] MEDS: LACTULOSE SYRUP 20 GM/30 ML CUP PO SCH (07:58)
[2017-05-31] MEDS: SENNOSIDES 8.6 MG TAB PO SCH (07:58)
[2017-05-31] MEDS: LACTATED RINGER'S 1000 ML INJ 1,000 ML IV SCH (07:58)
[2017-05-31] MEDS ORDERED: BACT800T5 PO (12:03)
[2017-05-31] MEDS ORDERED: AMOX875T PO (12:03)
[2017-06-02] MEDS ORDERED: COMMODE 3-IN-11 MIS (11:46)
== END 2017-05-31 11:52 | DRG 517 ==
LOC: N06B 05-23 00:57
PROVIDERS: ADMIT Orthopaedic Surgery Orthopaedic Trauma; ATTEND Orthopaedic Surgery Orthopaedic Trauma
PROC: 0QS404Z Reposition Right Acetabulum with Internal Fixation Device, Open Approach (ICD-10-PCS; principal; 2017-05-23 07:18)
PROC: DWY Radiation Therapy, Anatomical Regions, Other Radiation (ICD-10-PCS; 2017-05-25)
DX: S32.421A Displaced fracture of posterior wall of right acetabulum, initial encounter for closed fracture (principal); M89.40 Other hypertrophic osteoarthropathy, unspecified site; V28.4XXA Motorcycle driver injured in noncollision transport accident in traffic accident, initial encounter; Y92.488 Other paved roadways as the place of occurrence of the external cause; Y93.89 Activity, other specified
CPT/HCPCS: 73502; 76000; 76937; 77261; 77290; 77300; 77307; 77334; 77387; 77412; 85014; 85018; 85027; 86850; 86900; 86901; 94150; 99222; C1713; J0131; J0690; J1100; J1580; J1650; J2250; J2270; J2370; J2405; J2710; J3010; J3370; J7050; J7120; L1830

== ENCOUNTER 2017-07-24 02:39 | Inpatient (IN) | payer OTHER ==
[2017-07-24] VITALS (8 sets, daily range): BP systolic 116–149; BP diastolic 63–94; PULSE 63–91; RESP 16–22; TEMP 97.9–98.6; O2SAT 98–99
[~2017-07-24] VITALS: Ht 175.3 cm; Wt 89.2 kg
[~2017-07-24 02:39] MED LIST changes: +ACET325T15 PO; -AMOX875 PO; +COMMODE 3-IN-11 MIS; +HYDR-3583 PO; +INDO75CA3 PO; +NORC5TAB PO; +PERI PO; +POLY17S PO; -SULF1TAB47 PO; +XARE10TA PO
[2017-07-24] MEDS ORDERED: SODIUM CHLOR 0.9% 1000 ML INJ 1,000 ML IV SCH (02:50)
[2017-07-24] MEDS ORDERED: ONDANSETRON HCL 4 MG/2 ML VIAL ONE (02:53)
[2017-07-24] MEDS ORDERED: ONDANSETRON HCL 4 MG/2 ML VIAL IV PUSH ONE (03:00)
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
[2017-07-24 03:38] LABS: INTERNATIONAL NORMALIZED RATIO 1.1 RATIO; PROTHROMBIN TIME - PATIENT 11.1 SEC (9.8-11.6)
[2017-07-24] MEDS ORDERED: IOHEXOL 350 MG/ML 10 ML VIAL (for RAD DIAG) IVCONTRAST ONE (03:46)
[2017-07-24 03:54] LABS: BICARBONATE 24.6 MEQ/L (21.0-32.0); CALCIUM 8.8 MG/DL (8.5-10.1); CREATININE 0.96 MG/DL (0.60-1.30); DIRECT BILIRUBIN ADULT 0.1 MG/DL (0.0-0.2)
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
[2017-07-24 03:55] LABS: INDIRECT BILIRUBIN 0.1 MG/DL (0.0-0.8); TOTAL BILIRUBIN ADULT 0.2 MG/DL (0.2-1.0); TOTAL PROTEIN 8.1 GM/DL (6.4-8.2)
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
[2017-07-24 05:26] LABS: BASOPHIL % 0.4 % (0.0-2.0); EOSINOPHIL # 0.1 TH/MM3 (0-0.4); EOSINOPHIL % 0.7 % (0.0-4.0); HEMATOCRIT 43.4 % (39.0-51.0); HEMOGLOBIN 14.2 GM/DL (13.0-17.0); LYMPH % 31.6 % (9.0-44.0); LYMPHOCYTE # 3.7 TH/MM3 (1.0-4.8); MEAN CELL VOLUME 89.2 FL (80.0-100.0); MEAN CORPUSCULAR HEMOGLOBIN 29.1 PG (27.0-34.0); MEAN CORPUSCULAR HGB CONC 32.6 % (32.0-36.0); MEAN PLATELET VOLUME 7.9 FL (7.0-11.0); MONO % 6.9 % (0.0-8.0); MONOCYTE # 0.8 TH/MM3 (0-0.9); NEUT % 60.4 % (16.0-70.0); PLATELET COUNT 324 TH/MM3 (150-450); RED BLOOD COUNT 4.87 MIL/MM3 (4.50-5.90); RED CELL DISTRIBUTION WIDTH 13.7 % (11.6-17.2); WHITE BLOOD COUNT 11.6 TH/MM3 (4.0-11.0)
[2017-07-24 05:32] LABS: BILIRUBIN, URINE NEG (NEG); BLOOD, URINE SMALL (NEG); GLUCOSE,URINE NEG (NEG); KETONE, URINE NEG (NEG); NITRITE,URINE NEG (NEG); PH, URINE 5.5 (5.0-8.5); URINE COLOR LIGHT-YELLOW (YELLW/STRAW); URINE LEUKOCYTE ESTERASE NEG (NEG)
[2017-07-24] MEDS: ONDANSETRON HCL 4 MG/2 ML VIAL IV PRN ×2 (06:19→15:48)
[2017-07-24] MEDS: HYDROmorphone HCL PF 2 MG/ML VIAL IV PRN ×4 (06:19→23:58)
[2017-07-24] MEDS ORDERED: ENALAPRILAT 1.25 MG/ML VIAL IV PUSH PRN (07:30)
[2017-07-24] MEDS ORDERED: ONDANSETRON HCL 4 MG/2 ML VIAL IV PUSH PRN (07:30)
[2017-07-24] MEDS ORDERED: SODIUM CHLORIDE 0.9% FLUSH 10 ML FLUSH IV FLUSH PRN (07:30)
[2017-07-24] MEDS: PANTOPRAZOLE SODIUM 40 MG VIAL IVP SCH (08:24)
[2017-07-24] MEDS: SODIUM CHLOR 0.9% 1000 ML INJ 1,000 ML IV SCH ×2 (08:25→15:49)
[2017-07-24] MEDS ORDERED: ACETAMINOPHEN 1000 MG/100 ML 100 ML IV ONE (09:19)
[2017-07-24] MEDS ORDERED: ceFAZolin 2 GM PREMIX 50 ML ONE (10:00)
[2017-07-24] MEDS ORDERED: BUPIVACAINE/EPINEPHRINE 0.25% 50 ML VIAL ONE (10:00)
[2017-07-24] MEDS ORDERED: metroNIDAZOLE 500 MG INJ 100 ML IV ONE (10:05)
[2017-07-24] MEDS ORDERED: PHENYLEPH/NS 1000 MCG/10 ML SYR IV ONE (12:00)
[2017-07-24] MEDS ORDERED: PROPOFOL 200 MG/20 ML AMP IV ONE (12:00)
[2017-07-24] MEDS ORDERED: GLYCOPYRROLATE 1 MG/5 ML SYRINGE IV PUSH ONE (12:00)
[2017-07-24] MEDS ORDERED: DEXAMETHASONE SOD PHOS 4 MG/ML VIAL IV ONE (12:00)
[2017-07-24] MEDS ORDERED: ROCURONIUM INJ 50 MG/5 ML SYRINGE IV PUSH ONE (12:00)
[2017-07-24] MEDS ORDERED: NEOSTIGMINE 5 MG/5 ML SYRINGE IV PUSH ONE (12:00)
[2017-07-24] MEDS ORDERED: LACTATED RINGER'S 1000 ML INJ 1,000 ML IV ONE (12:00)
[2017-07-24] MEDS ORDERED: DO NOT ADM ANY ANTICOAGULANT DRUGS PRN (12:00)
[2017-07-24] MEDS ORDERED: ONDANSETRON HCL 4 MG/2 ML VIAL IV ONE (12:00)
[2017-07-24] MEDS ORDERED: LIDOCAINE HCL 1% PF 5 ML SYRINGE OTHER ONE (12:00)
[2017-07-24] MEDS ORDERED: MIDAZOLAM HCL 2 MG/2 ML VIAL ONE (12:04)
[2017-07-24] MEDS: PIPERACIL-TAZO 3.375 GM PREMIX 50 ML IV SCH ×2 (13:00→19:49)
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
[2017-07-25] VITALS (17 sets, daily range): BP systolic 111–135; BP diastolic 60–79; PULSE 58–110; RESP 17–18; TEMP 97.9–99; O2SAT 96–99
[2017-07-25] MEDS: SODIUM CHLOR 0.9% 1000 ML INJ 1,000 ML IV SCH ×3 (03:28→20:58)
[2017-07-25] MEDS: PIPERACIL-TAZO 3.375 GM PREMIX 50 ML IV SCH ×3 (04:23→20:59)
[2017-07-25] MEDS: HYDROmorphone HCL PF 2 MG/ML VIAL IV PRN ×5 (04:24→22:05)
[2017-07-25 06:14] LABS: AUTOMATED NEUTROPHIL # 11.3 TH/MM3 (1.8-7.7); BASOPHIL % 0.2 % (0.0-2.0); EOSINOPHIL % 0.1 % (0.0-4.0); HEMATOCRIT 40.7 % (39.0-51.0); HEMOGLOBIN 13.6 GM/DL (13.0-17.0); LYMPH % 7.8 % (9.0-44.0); MEAN CELL VOLUME 89.6 FL (80.0-100.0); MEAN CORPUSCULAR HEMOGLOBIN 29.8 PG (27.0-34.0); MEAN CORPUSCULAR HGB CONC 33.3 % (32.0-36.0); MEAN PLATELET VOLUME 7.8 FL (7.0-11.0); MONO % 6.4 % (0.0-8.0); MONOCYTE # 0.9 TH/MM3 (0-0.9); NEUT % 85.5 % (16.0-70.0); PLATELET COUNT 254 TH/MM3 (150-450); RED BLOOD COUNT 4.55 MIL/MM3 (4.50-5.90); RED CELL DISTRIBUTION WIDTH 13.8 % (11.6-17.2); WHITE BLOOD COUNT 13.2 TH/MM3 (4.0-11.0)
[2017-07-25 06:54] LABS: ALBUMIN 3.2 GM/DL (3.4-5.0); ALKALINE PHOSPHATASE 48 U/L (45-117); ALT (GPT) 17 U/L (12-78); AST (GOT) 22 U/L (15-37); BICARBONATE 25.1 MEQ/L (21.0-32.0); BLOOD UREA NITROGEN 14 MG/DL (7-18); CALCIUM 8.9 MG/DL (8.5-10.1); CHLORIDE 107 MEQ/L (98-107); CREATININE 1.08 MG/DL (0.60-1.30); GLOMERULAR FILTRATION RATE 98 ML/MIN (>89); GLUCOSE,RANDOM 111 MG/DL (74-106); SODIUM (NA) 140 MEQ/L (136-145); TOTAL BILIRUBIN ADULT 0.9 MG/DL (0.2-1.0); TOTAL PROTEIN 6.9 GM/DL (6.4-8.2)
[2017-07-25] MEDS: PANTOPRAZOLE SODIUM 40 MG VIAL IVP SCH (08:36)
[2017-07-25] MEDS: SODIUM CHLORIDE 0.9% FLUSH 10 ML FLUSH IVF PRN (08:37)
--- NOTE | 2017-07-25 09:32 | MP ---
cc: Mann Bailey MD DATE OF OPERATION: 07/24/2017 PREOPERATIVE DIAGNOSIS: Bowel injury. POSTOPERATIVE DIAGNOSIS: Small-bowel injury. PROCEDURE PERFORMED: Laparoscopy, repair of small-bowel injury, washout of peritoneal cavity. SURGEON: Mann Bailey MD ANESTHESIA: General endotracheal. ESTIMATED BLOOD LOSS: Less than 20 mL. FINDINGS: The patient had a perforation of the small bowel at the jejunum. The patient also had his descending colon torn off the peritoneum. There did not appear to be a colonic injury, just mesentery involvement. SPECIMENS: None. COMPLICATIONS: None. DESCRIPTION OF PROCEDURE: The patient was brought to the operating room, placed on the operating table in supine position. Bilateral sequential inflation devices placed on lower extremities. General anesthesia instituted. Mars catheter placed. Abdomen was prepped and draped sterilely. A point in the left upper quadrant anesthetized with 0.25% Marcaine with epinephrine. A skin incision was made, 5 mm Optiview port placed under direct vision. Pneumoperitoneum created. Under direct vision, 5 mm left lower quadrant, 5 mm right upper quadrant and 5 mm left lower quadrant ports were placed. Prior to placement of all ports, the skin and peritoneum anesthetized with 0.25% Marcaine with epinephrine. The abdominal cavity was inspected, findings of above. The injury to the small bowel was closed with 3-0 Vicryl suture in 2 layers. A 2-layer closure was performed in a simple interrupted manner. The abdominal cavity was irrigated with 3 L of saline. It was decided just to observe the colonic involvement. A 19-Tunisian drain was placed in the pelvis alongside of the descending colon, brought out through the 5 mm port site in the left upper quadrant. The CO2 was then released. All ports were removed. All skin incisions closed with 4-0 Monocryl. The abdominal wall was cleaned and a sterile dressing placed. The patient was awakened and taken to the recovery room. MD PETE Weaver/ANDRA , 05:58 PM , 06:31 PM
[2017-07-25] MEDS: PHENOL 1.4% SOLN 180 ML BTL OROPHARYNG PRN ×3 (11:07→17:29)
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
[2017-07-25] MEDS: ENOXAPARIN SODIUM 30 MG/0.3 ML SYRINGE SQ SCH (13:30)
[2017-07-26] VITALS (7 sets, daily range): BP systolic 134–147; BP diastolic 79–92; PULSE 54–83; RESP 17–18; TEMP 98.2–100.1; O2SAT 95–98
[2017-07-26] MEDS: HYDROmorphone HCL PF 2 MG/ML VIAL IV PRN ×4 (02:10→16:27)
[2017-07-26] MEDS: ENOXAPARIN SODIUM 30 MG/0.3 ML SYRINGE SQ SCH ×2 (02:10→11:45)
[2017-07-26 05:07] LABS: AUTOMATED NEUTROPHIL # 9.1 TH/MM3 (1.8-7.7); BASOPHIL % 0.3 % (0.0-2.0); EOSINOPHIL % 0.2 % (0.0-4.0); HEMATOCRIT 38.7 % (39.0-51.0); HEMOGLOBIN 13.1 GM/DL (13.0-17.0); LYMPH % 8.9 % (9.0-44.0); MEAN CORPUSCULAR HEMOGLOBIN 30.2 PG (27.0-34.0); MEAN CORPUSCULAR HGB CONC 33.9 % (32.0-36.0); MEAN PLATELET VOLUME 7.7 FL (7.0-11.0); MONO % 6.9 % (0.0-8.0); MONOCYTE # 0.8 TH/MM3 (0-0.9); NEUT % 83.7 % (16.0-70.0); PLATELET COUNT 248 TH/MM3 (150-450); RED BLOOD COUNT 4.35 MIL/MM3 (4.50-5.90); RED CELL DISTRIBUTION WIDTH 13.8 % (11.6-17.2); WHITE BLOOD COUNT 10.9 TH/MM3 (4.0-11.0)
[2017-07-26 05:17] LABS: ALBUMIN 2.8 GM/DL (3.4-5.0); AST (GOT) 17 U/L (15-37); BICARBONATE 25.8 MEQ/L (21.0-32.0); BLOOD UREA NITROGEN 16 MG/DL (7-18); CALCIUM 8.3 MG/DL (8.5-10.1); CHLORIDE 106 MEQ/L (98-107); GLOMERULAR FILTRATION RATE 107 ML/MIN (>89); GLUCOSE,RANDOM 83 MG/DL (74-106); SODIUM (NA) 140 MEQ/L (136-145)
[2017-07-26] MEDS: PIPERACIL-TAZO 3.375 GM PREMIX 50 ML IV SCH ×3 (05:17→21:38)
[2017-07-26 05:18] LABS: ALT (GPT) 15 U/L (12-78)
[2017-07-26 05:21] LABS: ALKALINE PHOSPHATASE 51 U/L (45-117); TOTAL BILIRUBIN ADULT 0.7 MG/DL (0.2-1.0); TOTAL PROTEIN 6.5 GM/DL (6.4-8.2)
[2017-07-26] MEDS: PANTOPRAZOLE SODIUM 40 MG VIAL IVP SCH (09:20)
[2017-07-26] MEDS: SODIUM CHLOR 0.9% 1000 ML INJ 1,000 ML IV SCH ×2 (09:20→19:28)
[2017-07-26] MEDS ORDERED: oxyCODONE/ACETAMINOPHEN 5 MG/325 MG TAB PO PRN (12:00)
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
[2017-07-26] MEDS: oxyCODONE/ACETAMINOPHEN 10 MG/325 MG TAB PO PRN ×2 (14:43→23:32)
[2017-07-26] MEDS: ONDANSETRON HCL 4 MG/2 ML VIAL IV PRN ×2 (16:27→23:24)
[2017-07-26] MEDS: SODIUM CHLORIDE 0.9% FLUSH 10 ML FLUSH IVF PRN (23:25)
[2017-07-27] VITALS (8 sets, daily range): BP systolic 121–152; BP diastolic 58–95; PULSE 54–74; RESP 18; TEMP 98.1–99.1; O2SAT 97–99
[2017-07-27] MEDS: ENOXAPARIN SODIUM 30 MG/0.3 ML SYRINGE SQ SCH ×2 (01:43→12:47)
[2017-07-27] MEDS: SODIUM CHLOR 0.9% 1000 ML INJ 1,000 ML IV SCH ×2 (05:28→07:54)
[2017-07-27] MEDS: PIPERACIL-TAZO 3.375 GM PREMIX 50 ML IV SCH ×3 (05:31→22:13)
[2017-07-27] MEDS: PANTOPRAZOLE SODIUM 40 MG VIAL IVP SCH (07:53)
[2017-07-27] MEDS: ONDANSETRON HCL 4 MG/2 ML VIAL IV PRN ×2 (07:54→12:48)
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
[2017-07-27] MEDS: HYDROmorphone HCL PF 2 MG/ML VIAL IV PRN (12:58)
[2017-07-27 14:06] LABS: AUTOMATED NEUTROPHIL # 8.4 TH/MM3 (1.8-7.7); BASOPHIL % 0.3 % (0.0-2.0); EOSINOPHIL % 0.2 % (0.0-4.0); HEMATOCRIT 43.2 % (39.0-51.0); HEMOGLOBIN 14.4 GM/DL (13.0-17.0); LYMPH % 13.9 % (9.0-44.0); LYMPHOCYTE # 1.5 TH/MM3 (1.0-4.8); MEAN CELL VOLUME 89.6 FL (80.0-100.0); MEAN CORPUSCULAR HEMOGLOBIN 29.8 PG (27.0-34.0); MEAN CORPUSCULAR HGB CONC 33.3 % (32.0-36.0); MEAN PLATELET VOLUME 7.4 FL (7.0-11.0); MONO % 7.1 % (0.0-8.0); MONOCYTE # 0.8 TH/MM3 (0-0.9); NEUT % 78.5 % (16.0-70.0); PLATELET COUNT 307 TH/MM3 (150-450); RED BLOOD COUNT 4.82 MIL/MM3 (4.50-5.90); RED CELL DISTRIBUTION WIDTH 13.6 % (11.6-17.2); WHITE BLOOD COUNT 10.7 TH/MM3 (4.0-11.0)
[2017-07-27] MEDS: METOCLOPRAMIDE HCL 10 MG/2 ML VIAL IV PUSH SCH ×2 (16:52→22:12)
[2017-07-27] MEDS: SODIUM CHLORIDE 0.9% FLUSH 10 ML FLUSH IVF PRN (22:13)
[2017-07-28] VITALS: BP 130/75; PULSE 71; RESP 18; TEMP 98.3; O2SAT 98
[2017-07-28] MEDS: SODIUM CHLOR 0.9% 1000 ML INJ 1,000 ML IV SCH ×2 (01:24→16:12)
[2017-07-28] MEDS: ENOXAPARIN SODIUM 30 MG/0.3 ML SYRINGE SQ SCH ×2 (01:24→16:12)
[2017-07-28 04:00] VITALS: BP 141/87; PULSE 62; RESP 18; TEMP 98.3; O2SAT 100
[2017-07-28] MEDS: HYDROmorphone HCL PF 2 MG/ML VIAL IV PRN ×4 (05:07→22:26)
[2017-07-28] MEDS: SODIUM CHLORIDE 0.9% FLUSH 10 ML FLUSH IVF PRN (05:07)
[2017-07-28] MEDS: PIPERACIL-TAZO 3.375 GM PREMIX 50 ML IV SCH ×3 (05:07→20:15)
[2017-07-28] MEDS: METOCLOPRAMIDE HCL 10 MG/2 ML VIAL IV PUSH SCH ×2 (05:08→16:12)
[2017-07-28 05:21] LABS: AUTOMATED NEUTROPHIL # 6.2 TH/MM3 (1.8-7.7); BASOPHIL % 0.3 % (0.0-2.0); EOSINOPHIL % 0.5 % (0.0-4.0); HEMATOCRIT 39.2 % (39.0-51.0); HEMOGLOBIN 12.8 GM/DL (13.0-17.0); LYMPH % 16.2 % (9.0-44.0); LYMPHOCYTE # 1.4 TH/MM3 (1.0-4.8); MEAN CELL VOLUME 89.6 FL (80.0-100.0); MEAN CORPUSCULAR HEMOGLOBIN 29.3 PG (27.0-34.0); MEAN CORPUSCULAR HGB CONC 32.7 % (32.0-36.0); MEAN PLATELET VOLUME 7.8 FL (7.0-11.0); MONOCYTE # 0.8 TH/MM3 (0-0.9); PLATELET COUNT 270 TH/MM3 (150-450); RED BLOOD COUNT 4.37 MIL/MM3 (4.50-5.90); RED CELL DISTRIBUTION WIDTH 13.3 % (11.6-17.2); WHITE BLOOD COUNT 8.4 TH/MM3 (4.0-11.0)
[2017-07-28 07:52] VITALS: BP 135/86; PULSE 64; RESP 18; TEMP 98.2; O2SAT 97
[2017-07-28] MEDS: PANTOPRAZOLE SODIUM 40 MG VIAL IVP SCH (09:14)
[2017-07-28 11:31] VITALS: BP 142/87; PULSE 68; RESP 18; TEMP 98.1; O2SAT 99
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
[2017-07-28 15:27] VITALS: BP 138/89; PULSE 64; RESP 18; TEMP 98.2; O2SAT 98
[2017-07-28] MEDS: MAGNESIUM HYDROXIDE SUSP 30 ML CUP PO SCH ×2 (17:55→20:14)
[2017-07-28 20:00] VITALS: BP 130/79; PULSE 67; RESP 18; TEMP 98.7; O2SAT 99
[2017-07-28] MEDS: DOCUSATE SODIUM 50 MG/SENNA 8.6 MG TAB PO SCH (20:14)
[2017-07-28] MEDS: ONDANSETRON HCL 4 MG/2 ML VIAL IV PRN (22:26)
[2017-07-29] VITALS: BP 134/81; PULSE 57; RESP 18; TEMP 98.4; O2SAT 98
[2017-07-29] MEDS: METOCLOPRAMIDE HCL 10 MG/2 ML VIAL IV PUSH SCH ×5 (00:25→23:40)
[2017-07-29] MEDS: ENOXAPARIN SODIUM 30 MG/0.3 ML SYRINGE SQ SCH ×2 (00:25→14:01)
[2017-07-29] MEDS: SODIUM CHLOR 0.9% 1000 ML INJ 1,000 ML IV SCH ×4 (00:30→22:07)
[2017-07-29] MEDS: HYDROmorphone HCL PF 2 MG/ML VIAL IV PRN ×5 (03:22→23:39)
[2017-07-29] MEDS: PIPERACIL-TAZO 3.375 GM PREMIX 50 ML IV SCH ×3 (05:38→20:30)
[2017-07-29 08:00] VITALS: BP 141/85; PULSE 67; RESP 16; TEMP 97.7; O2SAT 98
[2017-07-29] MEDS: PANTOPRAZOLE SODIUM 40 MG VIAL IVP SCH (08:59)
[2017-07-29] MEDS: MAGNESIUM HYDROXIDE SUSP 30 ML CUP PO SCH ×2 (08:59→20:30)
[2017-07-29] MEDS: DOCUSATE SODIUM 50 MG/SENNA 8.6 MG TAB PO SCH ×2 (09:05→20:30)
[2017-07-29] MEDS ORDERED: DIATRIZOATE MEGLUM/DIATRIZOATE SOD 9 ML CUP PO ONE (10:45)
[2017-07-29 11:10] LABS: HEMATOCRIT 40.2 % (39.0-51.0); HEMOGLOBIN 13.4 GM/DL (13.0-17.0); MEAN CELL VOLUME 88.5 FL (80.0-100.0); MEAN CORPUSCULAR HEMOGLOBIN 29.5 PG (27.0-34.0); MEAN CORPUSCULAR HGB CONC 33.3 % (32.0-36.0); MEAN PLATELET VOLUME 7.4 FL (7.0-11.0); PLATELET COUNT 292 TH/MM3 (150-450); RED BLOOD COUNT 4.54 MIL/MM3 (4.50-5.90); RED CELL DISTRIBUTION WIDTH 13.3 % (11.6-17.2); WHITE BLOOD COUNT 6.5 TH/MM3 (4.0-11.0)
[2017-07-29 12:00] VITALS: BP 157/85; PULSE 64; RESP 16; TEMP 98.5; O2SAT 96
[2017-07-29 12:44] LABS: LYMPHOCYTES 11 % (9-44); MONOCYTES 5 % (0-8); NEUTROPHIL # MANUAL DIFF 5.3 TH/MM3 (1.8-7.7); POLYS (SEG NEUTROPHILS) 82 % (16-70)
[2017-07-29] MEDS ORDERED: IOHEXOL 350 MG/ML 10 ML VIAL (for RAD DIAG) IVCONTRAST ONE (13:38)
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
--- NOTE | 2017-07-29 15:02 | RADRPT ---
EXAM DATE/TIME: 07/29/2017 13:24 [place] COMPARISON: CT ABDOMEN & PELVIS W CONTRAST, July 24, 2017, 3:46. INDICATIONS : Unable to keep liquids/solids down. History of small bowel injury. IV CONTRAST: 70 cc Omnipaque 350 (iohexol) IV ORAL CONTRAST: Partial prescribed oral contrast ingested. RADIATION DOSE: 7.33 CTDIvol (mGy) MEDICAL HISTORY : Small bowel injury SURGICAL HISTORY : Laproscopy ENCOUNTER: Subsequent ACUITY: 4 - 6 days PAIN SCALE: 5/10 LOCATION: Bilateral anterior TECHNIQUE: Volumetric scanning of the abdomen and pelvis was performed. Using automated exposure control and ad justment of the mA and/or kV according to patient size, radiation dose was kept as low as reasonably achievable to obtain optimal diagnostic quality images. DICOM format image data is available electro nically for review and comparison. FINDINGS: LOWER LUNGS: Tiny bilateral pleural effusions and minimal posterior base atelectasis. LIVER: Homogeneous density without lesion. There is no dilation of the biliary tree. No calcified gallston es. SPLEEN: Normal size without lesion. PANCREAS: Within normal limits. KIDNEYS: Normal in size and shape. There is no mass, stone or hydronephrosis. ADRENAL GLANDS: Within normal limits. VASCULAR: There is no aortic aneurysm. BOWEL/MESENTERY: The stomach and proximal small bowel are dilated with air and fluid. The more distal bowel is nondila kaushal and the colon is decompressed. There is no focal transition points identified. A surgical drain e nters the left paramedian mid abdomen and descends into the midline pelvis. ABDOMINAL WALL: Left abdominal surgical drain RETROPERITONEUM: There is no lymphadenopathy. BLADDER: No wall thickening or mass. REPRODUCTIVE: Within normal limits. INGUINAL: There is no lymphadenopathy or hernia. MUSCULOSKELETAL: Hardware reconstruction of the posterior right acetabulum. CONCLUSION: Interval development of small bilateral pleural effusions and slight lung base atelectasis. Abnormal bowel gas pattern, most likely adynamic ileus. Followup suggested. Tristin Mccullough MD on July 29, 2017 at 14:51 Board Certified Radiologist. This report was verified electronically.
[2017-07-29 16:00] VITALS: BP_SYST 122; BP_SYST 134; BP_DIAS 60; BP_DIAS 71; PULSE 65; PULSE 73; RESP 16; TEMP 97.8; TEMP 98.2; O2SAT 93; O2SAT 97
[2017-07-29 20:00] VITALS: BP 147/97; PULSE 65; RESP 18; TEMP 98.4; O2SAT 100
[2017-07-30 00:06] VITALS: BP 140/77; PULSE 68; RESP 18; TEMP 98.4; O2SAT 97
[2017-07-30] MEDS: ENOXAPARIN SODIUM 30 MG/0.3 ML SYRINGE SQ SCH ×2 (01:49→13:10)
[2017-07-30] MEDS: SODIUM CHLOR 0.9% 1000 ML INJ 1,000 ML IV SCH ×2 (03:28→05:52)
[2017-07-30] MEDS: METOCLOPRAMIDE HCL 10 MG/2 ML VIAL IV PUSH SCH ×3 (05:52→18:29)
[2017-07-30] MEDS: PIPERACIL-TAZO 3.375 GM PREMIX 50 ML IV SCH (05:52)
[2017-07-30 08:00] VITALS: BP 129/81; PULSE 66; RESP 16; TEMP 97.8; O2SAT 100
[2017-07-30] MEDS: oxyCODONE/ACETAMINOPHEN 10 MG/325 MG TAB PO PRN ×3 (08:54→20:37)
[2017-07-30] MEDS: PANTOPRAZOLE SODIUM 40 MG VIAL IVP SCH (08:54)
[2017-07-30] MEDS: SODIUM CHLORIDE 0.9% FLUSH 10 ML FLUSH IVF PRN (08:54)
[2017-07-30] MEDS: DOCUSATE SODIUM 50 MG/SENNA 8.6 MG TAB PO SCH ×2 (08:54→20:36)
[2017-07-30] MEDS: MAGNESIUM HYDROXIDE SUSP 30 ML CUP PO SCH ×2 (08:54→20:36)
[2017-07-30 12:00] VITALS: BP 113/58; PULSE 71; RESP 16; TEMP 98.4; O2SAT 98
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
[2017-07-30 16:00] VITALS: BP 119/66; PULSE 72; RESP 16; TEMP 98.5; O2SAT 96
[2017-07-30 20:37] VITALS: BP 157/88; PULSE 73; RESP 18; TEMP 99.3; O2SAT 97
[2017-07-31] MEDS: METOCLOPRAMIDE HCL 10 MG/2 ML VIAL IV PUSH SCH ×4 (00:33→17:49)
[2017-07-31] MEDS: ENOXAPARIN SODIUM 30 MG/0.3 ML SYRINGE SQ SCH ×2 (00:33→15:43)
[2017-07-31 00:34] VITALS: BP 134/78; PULSE 66; RESP 18; TEMP 97.8; O2SAT 96
[2017-07-31] MEDS: oxyCODONE/ACETAMINOPHEN 10 MG/325 MG TAB PO PRN ×4 (04:08→21:11)
[2017-07-31] MEDS ORDERED: BISACODYL 10 MG SUPP RECTAL ONE (06:30)
[2017-07-31 08:00] VITALS: BP 135/68; PULSE 65; RESP 16; TEMP 98.1; O2SAT 98
[2017-07-31] MEDS: DOCUSATE SODIUM 50 MG/SENNA 8.6 MG TAB PO SCH ×2 (09:00→21:09)
[2017-07-31] MEDS: MAGNESIUM HYDROXIDE SUSP 30 ML CUP PO SCH ×2 (09:00→21:00)
[2017-07-31 11:51] VITALS: BP 139/95; PULSE 72; RESP 18; TEMP 98.1; O2SAT 98
[2017-07-31 12:00] VITALS: BP 139/95; PULSE 72; RESP 16; TEMP 98; O2SAT 98
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
[2017-07-31 18:56] VITALS: BP 127/84; PULSE 85; RESP 16; TEMP 98.4; O2SAT 96
[2017-07-31 23:34] VITALS: BP 134/71; PULSE 69; RESP 18; TEMP 98.7; O2SAT 96
[2017-08-01] MEDS: METOCLOPRAMIDE HCL 10 MG/2 ML VIAL IV PUSH SCH ×3 (00:42→11:59)
[2017-08-01] MEDS: ENOXAPARIN SODIUM 30 MG/0.3 ML SYRINGE SQ SCH ×2 (00:42→12:01)
[2017-08-01 04:03] VITALS: BP 121/83; PULSE 71; RESP 18; TEMP 98.2; O2SAT 97
[2017-08-01] MEDS ORDERED: PERI PO (06:44)
[2017-08-01] MEDS ORDERED: OXYC1TAB63 PO (06:44)
[2017-08-01 08:00] VITALS: BP 123/69; PULSE 62; RESP 20; TEMP 97.9; O2SAT 98
[2017-08-01] MEDS: DOCUSATE SODIUM 50 MG/SENNA 8.6 MG TAB PO SCH (09:00)
[2017-08-01] MEDS: MAGNESIUM HYDROXIDE SUSP 30 ML CUP PO SCH (09:00)
[2017-08-01 12:00] VITALS: BP 139/82; PULSE 85; RESP 20; TEMP 98.4; O2SAT 99
[2017-08-01] MEDS: oxyCODONE/ACETAMINOPHEN 10 MG/325 MG TAB PO PRN (12:05)
== END 2017-08-01 15:30 | disposition home or self-care (01) | DRG 330 ==
LOC: NEPC 02:39 → NEDA 04:54 → N06B 05:52 → OBSVTOIN 07:33
PROVIDERS: ADMIT Surgery; ATTEND Surgery
PROC: 0DQA4ZZ Repair Jejunum, Percutaneous Endoscopic Approach (ICD-10-PCS; principal; 2017-07-24 09:57)
DX: S36.438A Laceration of other part of small intestine, initial encounter (principal); S36.898A Other injury of other intra-abdominal organs, initial encounter; K56.7 Ileus, unspecified; V47.5XXA Car driver injured in collision with fixed or stationary object in traffic accident, initial encounter; Y92.410 Unspecified street and highway as the place of occurrence of the external cause
CPT/HCPCS: 70450; 70486; 71045; 71260; 72125; 72170; 74018; 74177; 80048; 80053; 80076; 80307; 81001; 85007; 85025; 85027; 85610; 85730; 86850; 86900; 86901; 87493; 94150; 96361; 96374; C9113; J0131; J0690; J1100; J1170; J1650; J2250; J2370; J2405; J2543; J2710; J2765; J3010; J7030; J7120; Q9963; Q9967